=== PATIENT | female | born 1990 | race African-American/Black ===

== ENCOUNTER 2019-04-26 00:14 | Emergency (ER) | payer OTHER ==
[~2019-04-26] VITALS: Ht 167.6 cm; Wt 59.5 kg
[~2019-04-26 00:14] MED LIST: FLUT1DIS IH
[2019-04-26] MEDS ORDERED: MAGNESIUM/ALUMINUM HYDROXIDE/SIMETHICONE 30ML UDC PO ONE (04:15)
[2019-04-26] MEDS ORDERED: VISCOUS LIDOCAINE 2% 15 ML UDC PO ONE (04:15)
[2019-04-26 04:57] VITALS: BP 121/79
== END 2019-04-26 04:58 | disposition home or self-care (01) ==
LOC: ER 00:14
DX: J01.90 Acute sinusitis, unspecified (principal); J06.9 Acute upper respiratory infection, unspecified; J45.909 Unspecified asthma, uncomplicated; Z76.0 Encounter for issue of repeat prescription
CPT/HCPCS: 93005; 99283